=== PATIENT | male | born 1975 | race Caucasian/White ===

== ENCOUNTER 2020-07-15 20:36 | Emergency (ER) | payer OTHER ==
[~2020-07-15] VITALS: Ht 185.4 cm; Wt 129.7 kg
[2020-07-15 20:40] VITALS: Ht 185.4 cm; Wt 129.7 kg
[2020-07-15] MEDS ORDERED: ADIPEX-P37.5 MG PO (20:42)
[2020-07-15 22:04] LABS: BASOPHILS 1.5 % (0-2); EOSINOPHILS 2.7 % (0-7); HEMATOCRIT 43.5 % (42.0-54.0); LYMPHOCYTES 40.3 % (15-50); MCH 32.7 pg (26.0-34.0); MCHC 34.4 g/dL (31.0-37.0); MCV 95.1 fL (80.0-100.0); MEAN PLATELET VOLUME 7.3 fL (7.4-10.4); MONOCYTES 8.7 % (2-11); NEUTROPHILS 46.8 % (40-80); PLATELET COUNT 340 10x3/uL (130-400); RBC 4.57 10x6/uL (4.20-6.10); RDW 13.1 % (11.5-14.5); WBC 9.6 10x3/uL (4.8-10.8)
[2020-07-15 22:08] LABS: ANION GAP 14.4 mmol/L (8-16); CALCIUM 8.4 mg/dL (8.5-10.1); CARBON DIOXIDE 26.4 mmol/L (21.0-32.0); CREATININE - SERUM 1.3 mg/dL (0.6-1.3); POTASSIUM - SERUM 3.8 mmol/L (3.5-5.1)
[2020-07-15 22:14] LABS: ALBUMIN 3.9 g/dL (3.4-5.0); BILIRUBIN - TOTAL 0.33 mg/dL (0.2-1.3); C-REACTIVE PROTEIN 0.2 mg/dL (0.0-0.9); PROTEIN - SERUM 7.4 g/dL (6.4-8.2)
[2020-07-16 00:07] LABS: BILIRUBIN NEGATIVE (NEGATIVE); KETONE NEGATIVE mg/dL (< 1+); NITRITE NEGATIVE (NEGATIVE); UROBILINOGEN NORMAL mg/dL (< 2); WHITE CELLS - URINE 1 HPF (0-1)
[2020-07-16] MEDS ORDERED: HYDROCODON-ACE1 EAC7 PO (00:18)
[2020-07-16] MEDS ORDERED: ANUSOL-HC 2.5%30 GM RC (00:18)
[2020-07-16] MEDS ORDERED: ANUSOL-HC25 MG RC (00:18)
[2020-07-16 00:36] VITALS: BP 112/62
== END 2020-07-16 00:36 | disposition home or self-care (01) ==
LOC: D.ER 20:36
PROVIDERS: Family Medicine
DX: K62.89 Other specified diseases of anus and rectum (principal)